=== PATIENT | female | born 1955 | race Caucasian/White ===

== ENCOUNTER 2016-11-23 12:29 | Emergency (ER) | payer OTHER ==
[~2016-11-23] VITALS: Ht 165.1 cm; Wt 81.6 kg
[~2016-11-23 12:29] MED LIST: NORCO 325 MG-51 TAB PO; ZITHROMAX Z PA250 MG PO
[2016-11-23 14:04] LABS: ABSOLUTE BASOPHIL COUNT 0 /CUMM (0.0-0.2); ABSOLUTE EOSINOPHIL COUNT 0 /CUMM (0.0-0.7); ABSOLUTE GRANULOCYTE CT 7.5 /CUMM (1.4-6.5); ABSOLUTE LYMPH COUNT 0.5 /CUMM (1.2-3.4); ABSOLUTE MONOCYTE COUNT 0.2 /CUMM (0.10-0.60); BASOPHIL % 0 % (0.0-2.0); EOSINOPHIL % 0.1 % (0-5); HEMATOCRIT 43.4 % (37-47); MEAN CORPUSCULAR HGB 30.1 PG (27.0-31.0); MEAN CORPUSCULAR HGB CONC 33.9 G/DL (33.0-37.0); MEAN CORPUSCULAR VOLUME 88.6 FL (81.0-99.0); PLATELET COUNT 184 /CUMM (130-400); RBC DISTRIBUTION WIDTH 12.6 % (11.5-14.5); WHITE BLOOD CELL COUNT 8.2 /CUMM (4.8-10.8)
[2016-11-23] MEDS ORDERED: TRAMADOL HCL50 M1 PO (14:08)
--- NOTE | 2016-11-23 14:12 | ED GI/GU/ABDOMINAL COMPLAINT ---
History of Present Illness General Chief Complaint: Nausea, Vomiting, Diarrhea Stated Complaint: VOMITING Source: patient Exam Limitations: no limitations Vital Signs & Intake/Output Vital Signs & Intake/Output Vital Signs Date Time Temp Pulse Resp B/P Pulse O2 O2 Flow FiO2 Ox Delivery Rate 11/23 1514 84 18 144/78 99 Room Air 11/23 1245 97.0 88 16 147/86 96 Room Air ED Intake and Output 11/24 0000 11/23 1200 Intake Total 1650 Output Total Balance 1650 Intake, IV 1500 Intake, Oral 150 Patient 180 lb Weight Allergies Coded Allergies: MDX - Codeine (CODEINE) (NAUSEA 11/23/16) Reconcile Medications Ondansetron (Zofran Odt) 4 MG TAB.RAPDIS 1 TAB SL TID Nausea and Vomiting Tramadol HCl 50 MG TABLET 1 TAB PO BIDP PRN BACK PAIN (Reported) Triage Note: PT TO ED FOR VOMITING SINCE 6AM AFTER TAKING TRAMADOL LAST NIGHT. Triage Nurses Notes Reviewed? yes ? n Is pt currently ? No HPI: 61 yo F PMH Spinal Stenosis presenting with N/V. Patient evaluated by orthopedist yesterday for LBP 2/2 spinal stenosis, prescribed tramadol, took for marielena first time last night around 21:00, this morning around 6:00 woke up with nausea. 10+ episodes of NBNB emesis since that time, unable to tolerate food or fluids PO. 1 episode of loose watery stool, non-bloody. Denies fevers, chills, rash, oropharyngeal swelling or itching, chest pain, SOB, wheezing, abdominal pain, constipation, urinary Sx, vaginal Sx, neurologic Sx. Patient has had similar reaction to codeine in the past. (WALDO KING,CHITO) Past History Travel History Traveled to [place] past 21 day No Medical History Any Pertinent Medical History? 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 Yes (CHITO HAAS MD) Review of Systems Review of Systems Constitutional: Reports: no symptoms. EENTM: Reports: no symptoms. Respiratory: Reports: no symptoms. Cardiovascular: Reports: no symptoms. GI: Reports: diarrhea, nausea, vomiting. Denies: abdominal pain, constipation, distention, melena, bloody stool. Genitourinary: Reports: no symptoms. Musculoskeletal: Reports: no symptoms. Skin: Reports: no symptoms. Neurological/Psychological: Reports: no symptoms. Hematologic/Endocrine: Reports: no symptoms. Immunologic/Allergic: Reports: no symptoms. All Other Systems: Reviewed and Negative (CHITO HAAS MD) Physical Exam Physical Exam General Appearance: well developed/nourished, no apparent distress, alert, awake Head: atraumatic, normal appearance Eyes: Bilateral: normal appearance. Neck: normal inspection, supple, full range of motion Respiratory: normal breath sounds, no respiratory distress, quiet respiration, lungs clear Cardiovascular: regular rate/rhythm, normal peripheral pulses Gastrointestinal: normal bowel sounds, soft, non-tender, no organomegaly Extremities: normal range of motion Neurologic/Psych: no motor/sensory deficits, awake, alert Comments: Abdominal Exam: Abdomen soft and non-TTP throughout Core Measures ACS in differential dx? Yes Severe Sepsis Present: No Septic Shock Present: No (WALDO KING,CHITO) Progress Differential Diagnosis: appendicitis, bowel obstruction, cholecystitis, diverticulitis, gastritis, inflamm bowel dis, pancreatitis, peptic ulcer, PUD/ GERD, SBO, UTI/pyelo Plan of Care: Orders Procedure Date/time Status EKG 11/23 1620 Active LIPASE 11/23 1334 Complete COMPREHENSIVE METABOLIC PANEL 11/23 1334 Complete CBC WITHOUT DIFFERENTIAL 11/23 1334 Complete Laboratory Tests 11/23/16 1347: Anion Gap 10, Estimated GFR > 60, BUN/Creatinine Ratio 26.7 H, Glucose 114 H, Calcium 9.8, Total Bilirubin 0.6, AST 31, ALT 55 H, Alkaline Phosphatase 91, Total Protein 7.3, Albumin 4.5, Globulin 2.8, Albumin/Globulin Ratio 1.6, Lipase 85, CBC w Diff MAN DIFF ORDERED, RBC 4.90, MCV 88.6, MCH 30.1, RDW 12.6, MPV 9.0 , Gran % 91.0 H, Lymphocytes % 6.6 L, Monocytes % 2.3, Eosinophils % 0.1, Basophils % 0 L, Absolute Granulocytes 7.5 H, Absolute Lymphocytes 0.5 L, Absolute Monocytes 0.2, Absolute Eosinophils 0, Absolute Basophils 0, Platelet Estimate ADEQUATE, Normocytic RBCs VERIFIED, Normochromic RBCs VERIFIED, PUBS MCHC 33.9 Physician MDM: 61 yo F PMH spinal stenosis presenting with nausea and vomiting associated with tramadol use. VSS, abdominal exam benign. DDx: Medication side effect, Allergic reaction, gastritis, gasrtoenteritis, low concern for ACS, anaphylaxis, surgical abdominal pathiology. ECG sinus rhythm, non-ischemic. Medicated wtih zofran and 2L NS with resolution of nausea, able to tolerate PO well in ED. CMP, CBC, Lipase with mild ALT elevation, otherwise unremarkable. On repeat examination abdomen non-TTP throughout, negative burch's sign. Patient symptomatically improved, requesting discharge. D/Pako with ODT zofran, return precautions, plan to f/u with PMD or orthopedist in the next 2-3 days for other pain control options. D/W Dr. Fitch. (WALDO KING,CHITO) Initial ED EKG: normal axis (WALDO KING,CHITO) Departure Departure Disposition: HOME OR SELF CARE Condition: Stable Clinical Impression Primary Impression: Nausea and vomiting Qualifiers: Vomiting type: unspecified Vomiting Intractability: non-intractable Qualified Code: R11.2 - Nausea with vomiting, unspecified Referrals: JULIO Castellanos,TOPHER BRADLEY (PCP/Family) Additional Instructions: Take zofran every 8 hours as needed for nausea and vomiting. Follow up with your primary care physician or back doctor for other pain control options. Return to the ED for any new, worsening, or concerning symptoms. Departure Forms: Customer Survey General Discharge Information Prescriptions: Current Visit Scripts Ondansetron (Zofran Odt) 1 TAB SL TID #20 TAB (CHITO HAAS MD) Resident Co-Sign Statement Statement: ED Attending supervision documentation- [X] I saw and evaluated the patient. I have also reviewed all the pertinent lab results and diagnostic results. I agree with the findings and the plan of care as documented in the Resident's documentation. [X] I have reviewed the ED Record and agree with the Resident's documentation. [] Additions or exceptions (if any) to the Resident's note and plan are summarized below: [] (PHILL KING,FAUZIA)
[2016-11-23 15:14] VITALS: BP 144/78
[2016-11-23] MEDS ORDERED: ZOFRAN ODT4 M1 SL (16:56)
== END 2016-11-23 17:06 ==
LOC: ERH 12:29
PROVIDERS: Student in an Organized Health Care Education/Training Program
DX: R11.2 Nausea with vomiting, unspecified (principal)
CPT/HCPCS: 93005; 93010; 96374; 96375; J2405